=== PATIENT | male | born 2000 | race Caucasian/White ===

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

== ENCOUNTER 2023-12-03 15:16 | Emergency (ER) | payer MEDICAID, SELFPAY ==
[2023-12-03 15:22] VITALS: BP 131/81; PULSE 85; RESP 16; TEMP 36.8; O2SAT 96
--- NOTE | 2023-12-03 15:35 | XRR_ITS ---
PROCEDURE INFORMATION: Exam: XR Chest Exam date and time: 12/03/2023 3:38 PM Age: 22 years old Clinical indication: Pain; Angina pectoris; Additional info: Chest pain TECHNIQUE: Imaging protocol: Radiologic exam of the chest. Views: 1 view. COMPARISON: CR XR chest 1V [id number] 09/01/2017 09:15 FINDINGS: Lungs: Unremarkable. No consolidation. Pleural spaces: Unremarkable. No pleural effusion. No pneumothorax. Heart/Mediastinum: Unremarkable. No cardiomegaly. Bones/joints: Unremarkable. XR/XR chest 1V portable [id number] IMPRESSION: No acute findings.
--- NOTE | 2023-12-03 15:36 | ED_ITS ---
HPI - Anxiety 2 General: Chief Complaint: Anxiety Stated Complaint: Dizziness, numbness in feet and hands Time Seen by Provider: 12/03/23 15:33 Source: patient Mode of arrival: ambulatory Limitations: no limitations History of Present Illness: Patient is a 22-year-old male with a history of generalized anxiety disorder with panic attacks here for complaints of possible anxiety. He states over the past 3 days his anxiety has been intolerable. He states he is having chest pain, his hands and feet are going numb, dizziness, and he feels like he has a wall in the front of his brain reporting that is difficult to express his thoughts. He is also having nausea. Patient states he used to take Lexapro and Buspirone for his anxiety but is no longer taking these due to unwanted side effects. Patient wants to make sure it is not my heart . MD complaint: anxiety Onset (ago): day(s) Symptoms: chest pain and extremity numbness/tingling Severity: moderate Quality: constant Place: home History of similar episodes: Yes Provoking factors: none known Relieving factors: nothing Exacerbating factors: nothing Associated symptoms: Reports chest pain and nausea; Deny chills, fever(s), headache(s), malaise, palpitations, syncope or vomiting Review of Systems 2 Const: Denies: fever(s), chills, body aches, fatigue or malaise Eyes: Denies: change in vision, blurry vision, photophobia, floaters or seeing flashes Card: Reports: chest pain; Denies: palpitations, irregular heart rhythm, edema, swelling of feet/ankles, lightheadedness, syncope, pre-syncope, dyspnea on exertion, orthopnea, leg pain with exertion or acrocyanosis Resp: Denies: dyspnea, productive cough or pain on inspiration GI: Reports: nausea; Denies: abdominal pain, vomiting, heartburn or diarrhea : Denies: difficulty urinating or dysuria Musc: Denies: neck pain, back pain, extremity pain, extremity swelling or joint pain Skin/Breast: Denies: rash Neuro: Reports: sensory changes (states hands/feet are going numb), dizziness and difficulty communicating thoughts (feels like he has a wall in his brain ); Denies: headache(s), weakness in extremities, difficulty walking, frequent falls, behavioral changes, Slurred speech present or seizure-like activity Psych: Reports: anxiety; Denies: depression, hopelessness, paranoia or suicidal ideation PFSH ED 2 PFSH: Medical History Urolithiasis History of kidney stones Ureteral calculus Surgical History Status post routine circumcision Status post adenoidectomy Family History Mother History of migraine headaches Social History Smoking and tobacco/nicotine status: never used tobacco/nicotine Second hand smoke exposure: Yes Alcohol intake: never Current gender identity: Male Physical Exam 2 Const: COMMON NORMALS: average body habitus, patient oriented x3, no limitations, healthy appearing, alert and well nourished GENERAL APPEARANCE: cooperative and anxious ORIENTATION/CONSCIOUSNESS: Yes awake, Yes oriented to person, Yes oriented to place and Yes oriented to time OTHER: anxious appearing; tremulous in his hands at times HENMT: COMMON NORMALS: normocephalic and atraumatic HEAD & SCALP: normal to inspection, normocephalic and atraumatic Eye: GENERAL EYE: appearance normal, both eyes and all related structures Neck/C-Spine: COMMON NORMALS: full ROM, no lymphadenopathy and Thyroid normal GENERAL: Yes normal visual inspection THYROID: Thyroid normal Chest: COMMONS NORMALS: normal inspection of the chest and normal palpation of entire chest wall Resp: COMMON NORMALS: normal respiratory effort and clear to auscultation bilaterally AUSCULTATION: clear to auscultation bilaterally Cardio: COMMON NORMALS: regular rate and regular rhythm RATE: regular rate RHYTHM: regular rhythm Neuro: SHARON COMA SCALE: document GCS findings Sharon coma scale eye opening: Spontaneous Sharon coma scale verbal response: Orientated [place] coma scale motor response: Obey commands Sharon coma scale total score: 15 COMMON NORMALS: patient oriented x3, CN's II-XII intact bilaterally, moves all extremities, no focal motor deficits, no sensory deficits noted and gait normal SENSORIUM/ORIENTATION: Yes alert, Yes oriented to person, Yes oriented to place and Yes oriented to time Psych: COMMON NORMALS: mental status grossly normal, Normal thought process present, cooperative, speech normal, activity/motor behavior normal, denies hallucinations, denies homicidal ideation and denies suicidal ideation A PPEARANCE: Yes grossly normal ATTITUDE: Yes calm ACTIVITY/MOTOR BEHAVIOR: Yes appropriate eye contact SPEECH: Yes normal speech MOOD & AFFECT: Yes anxious THOUGHT PROCESS: Normal thought process present THOUGHT CONTENT: Y es Normal thought content present ATTENTION/CONCENTRATION: Yes attention grossly intact and Yes concentration grossly intact MEMORY/COGNITION: Yes memory grossly intact INSIGHT: Good insight present (Psych) JUDGEMENT: G ood judgement present (Psych) Skin: COMMON NORMALS: no rashes or lesions noted GENERAL SKIN EXAM: no rashes or lesions noted Course 2 Vital Signs: Vital signs: Vital Signs Temperature 98.3 F 12/03/23 15:22 Pulse Rate 71 12/03/23 16:09 Respiratory Rate 18 12/03/23 16:09 Blood Pressure 146/95 12/03/23 16:09 Pulse Oximetry 99 12/03/23 16:09 Oxygen Delivery Me thod Room Air 12/03/23 16:09 MDM - Anxiety Medical Decision Making Patient arrives in no acute distress although he visibly is anxious. His vital signs are stable. Workup here including CBC, CMP, troponin, EKG, CXR, and TSH. These are all unremarkable. He does have some minor elevated hyperbilirubinemia. This was present 2021 as well. At this time I feel patient is stable to follow-up with his primary care provider. Did not want to restart an antidepressant medication for his anxiety at this visit. Medical Records I reviewed the patient's medical records. Lab Data I reviewed the patient's lab results. 12/03/23 15:58 12/03/23 15:58 Radiology Impressions Chest X-Ray 12/03/23 15:35 IMPRESSION: No acute findings. Laboratory Results WBC 7.14 10^3/uL (4.5-13.0) 12/03/23 15:58 RBC 5.29 10^6/uL (3.85-5.65) 12/03/23 15:58 Hgb 16.80 g/dL (13.2-15.6) H 12/03/23 15:58 Hct 47.3 % (37-53) 12/03/23 15:58 MCV 89.4 fl (82-101) 12/03/23 15:58 MCH 31.8 pg (27-33) 12/03/23 15:58 MCHC 35.5 g/dL (30-55) 12/03/23 15:58 RDW 11.4 % (12.1-15.1) L 12/03/23 15:58 Plt Count 240 10^3/cmm (157-399) 12/03/23 15:58 MPV 9.7 fL (7.4-10.4) 12/03/23 15:58 Neut % (Auto) 72.6 % 12/03/23 15:58 Lymph % (Auto) 19.5 % 12/03/23 15:58 [place] % (Auto) 5.9 % 12/03/23 15:58 Eos % (Auto) 1.1 % 12/03/23 15:58 Baso % (Auto) 0.6 % 12/03/23 15:58 Neut # (Auto) 5.19 10^3/uL (1.8-8.0) 12/03/23 15:58 Lymph # (Auto) 1.4 10^3/uL (1.5-6.5) L 12/03/23 15:58 [place] # (Auto) 0.4 10^3/uL (0.2-0.9) 12/03/23 15:58 Eos # (Auto) 0.1 10^3/uL (0.0-0.8) 12/03/23 15:58 Baso # (Auto) 0.0 10^3/uL (0.0-0.1) 12/03/23 15:58 Nucleated RBC % (auto) 0 % 12/03/23 15:58 Nucleated RBCs # 0.0 /100WBC 12/03/23 15:58 Sodium 141 mmol/L (136-145) 12/03/23 15:58 Potassium 4.3 mmol/L (3.5-5.1) 12/03/23 15:58 Chloride 103 mmol/L (98-107) 12/03/23 15:58 Carbon Dioxide 25 mmol/L (22-29) 12/03/23 15:58 Anion Gap 17.3 (5-19) 12/03/23 15:58 BUN 9 mg/dL (6-20) 12/03/23 15:58 Creatinine 0.8 mg/dL (0.7-1.2) 12/03/23 15:58 GFR Calculation 123.2 mL/min (90-130) 12/03/23 15:58 Glucose 99 mg/dL (65-115) 12/03/23 15:58 Calculated Osmolality 291 mOsm/kg (285-295) 12/03/23 15:58 Calcium 9.7 mg/dL (8.5-10.5) 12/03/23 15:58 Total Bilirubin 2.1 mg/dL (0.15-1.2) H 12/03/23 15:58 AST 12 U/L (0-40) 12/03/23 15:58 ALT 9 U/L (0-41) 12/03/23 15:58 Alkaline Phosphatase 80 U/L (40-130) 12/03/23 15:58 Troponin T Baseline < 6 ng/L (0-15) 12/03/23 15:58 Total Protein 7.4 g/dL (6.6-8.7) 12/03/23 15:58 Albumin 4.9 g/dL (3.5-5.2) 12/03/23 15:58 Globulin 2.5 g/dL (1.3-4.6) 12/03/23 15:58 TSH 1.95 uIU/mL (0.27-4.20) 12/03/23 15:58 All radiology interpretation(s) finalized by discharge Discharge Plan Discharge Patient Disposition: Home Clinical Impression: Anxiety Condition: Stable Prescriptions: No Action buspirone 5 mg tablet 5 mg PO BID 30 Days Qty: 60 5RF escitalopram oxalate [Lexapro] 10 mg tablet 10 mg PO DAILY Qty: 30 5RF tretinoin 0.01 % gel 1 applic topical Q2D Qty: 45 1RF Rx Instructions: Apply at bedtime. benzoyl peroxide 5 % cleanser 1 applic topical DAILY Qty: 142 1RF Rx Instructions: Apply in the morning. DO NOT USE AT SAME TIME TRETINOIN. Discharge Orders: Discharge ED (Routine); Ordered 12/03/23 Ordered By: Bridget Roblero Referrals: Rashawn John DO [Primary Care Provider] - Activity Restrictions/Additional Instructions: As we discussed your emergency department workup today was fairly normal. I would like you to follow-up with your primary care provider for further evaluation/treatment of your symptoms. Coding Level of Care Code ED Human Resource Analyst for Penny Patel
--- NOTE | 2023-12-03 15:49 | ECG_ITS ---
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 Measurements Intervals [place] Rate: 80 P: 56 SC: 131 QRS: 85 QRSD: 90 T: 44 QT: 331 QTc: 382 Interpretive Statements SINUS RHYTHM WITH SINUS ARRHYTHMIA Compared to ECG 07/12/2014 22:40:14 Sinus tachycardia no longer present T-wave abnormality no longer present Electronically Signed On 12-03-2023 19:04:59 CDT by Ezekiel Gong M.D. [email or web address]
[2023-12-03] MEDS: LORazepam 0.5 mg Tablet PO (16:06)
[2023-12-03 16:09] VITALS: BP 146/95; PULSE 71; RESP 18; O2SAT 99
[2023-12-03 16:17] LABS: Basophils % 0.6 %; Eosinophils # 0.1 10^3/uL (0.0-0.8); Eosinophils % 1.1 %; Hematocrit 47.3 % (37-53); Lymphocytes # 1.4 10^3/uL (1.5-6.5); Lymphocytes % 19.5 %; Mean Corpuscular HGB Conc 35.5 g/dL (30-55); Mean Corpuscular Hemoglobin 31.8 pg (27-33); Mean Corpuscular Volume 89.4 fl (82-101); Mean Platelet Volume 9.7 fL (7.4-10.4); Monocytes # 0.4 10^3/uL (0.2-0.9); Monocytes % 5.9 %; Neutrophils # 5.19 10^3/uL (1.8-8.0); Neutrophils % 72.6 %; Nucleated Red Blood Cells % 0 %; Platelet Count 240 10^3/cmm (157-399); Red Blood Count 5.29 10^6/uL (3.85-5.65); Red Cell Distribution Width 11.4 % (12.1-15.1); White Blood Count 7.14 10^3/uL (4.5-13.0)
[2023-12-03 16:36] LABS: Troponin(5th) Baseline < 6 ng/L (0-15)
[2023-12-03 16:47] LABS: Alanine Aminotransferase 9 U/L (0-41); Albumin Level 4.9 g/dL (3.5-5.2); Alkaline Phosphatase 80 U/L (40-130); Anion Gap 17.3 (5-19); Aspartate Amino Transferase 12 U/L (0-40); Blood Urea Nitrogen 9 mg/dL (6-20); Calcium 9.7 mg/dL (8.5-10.5); Carbon Dioxide 25 mmol/L (22-29); Chloride 103 mmol/L (98-107); Creatinine Clr Calc Pharmacy 157.4792; Globulin 2.5 g/dL (1.3-4.6); Glomerular Filtration Rate 123.2 mL/min (90-130); Glucose 99 mg/dL (65-115); Osmolality Calculated 291 mOsm/kg (285-295); Potassium 4.3 mmol/L (3.5-5.1); Sodium 141 mmol/L (136-145); Thyroid Stimulating Hormone 1.95 uIU/mL (0.27-4.20); Total Bilirubin 2.1 mg/dL (0.15-1.2); Total Protein 7.4 g/dL (6.6-8.7)
[2023-12-03 17:07] VITALS: BP 145/79; PULSE 70; RESP 18; O2SAT 99
== END 2023-12-03 17:09 | disposition home or self-care (01) ==
PROVIDERS: Emergency Provider Physician Assistant; PCP Family Medicine
DX: F41.9 Anxiety disorder, unspecified (principal); Z77.22 Contact with and (suspected) exposure to environmental tobacco smoke (acute) (chronic)
CPT/HCPCS: 71045; 80053; 84443; 84484; 85025; 93005; 99285